=== PATIENT | male | born 1955 | race African-American/Black ===

== ENCOUNTER 2023-07-27 10:31 | Emergency (ER) | payer BC ==
[~2023-07-27] VITALS: Ht 175.3 cm; Wt 91.0 kg
[2023-07-27 11:04] VITALS: O2SAT 98
[2023-07-27 11:57] LABS: CLARITY URINE CLOUDY (CLEAR); COLOR URINE RED (YELLOW); GLUCOSE URINE NEGATIVE (NEGATIVE); KETONES URINE NEGATIVE (NEGATIVE); LEUKOCYTE ESTERASE URINE 1+ (NEGATIVE); NITRITE URINE NEGATIVE (NEGATIVE); OCCULT BLOOD URINE 3+ (NEGATIVE); PH URINE 5.5 (4.5-8.0); PROTEIN URINE 3+ (NEGATIVE)
[2023-07-27 12:50] LABS: RBC URINE TNTC /hpf (0-2)
[2023-07-27 12:56] LABS: SQUAMOUS EPITHELIAL CELL URINE RARE /lpf (RARE/1+)
[2023-07-27 12:57] LABS: BACTERIA URINE 2+; MUCUS URINE 1+ /lpf (NONE/TRACE); YEAST URINE NONE SEEN
[2023-07-27] MEDS ORDERED: CEFP200T13 MT (13:06)
[2023-07-27 13:27] VITALS: BP 128/84; PULSE 64; RESP 17; TEMP 98.4
== END 2023-07-27 13:55 | disposition home or self-care (01) ==
LOC: ER 10:31
DX: N39.0 Urinary tract infection, site not specified (principal)
CPT/HCPCS: 81003; 99283